=== PATIENT | female | born 1995 | race Caucasian/White ===

== ENCOUNTER → 2016-06-20 | Outpatient (CLI) | payer BC | LOC: BHSO 15:57 | DX: F90.0 Attention-deficit hyperactivity disorder, predominantly inattentive type (principal) ==

== ENCOUNTER → 2016-09-12 | Outpatient (CLI) | payer BC | LOC: BHSO 15:08 | DX: F90.0 Attention-deficit hyperactivity disorder, predominantly inattentive type (principal) ==

== ENCOUNTER → 2017-03-23 | Outpatient (CLI) | payer BC | LOC: BHSO 15:19 | DX: F90.0 Attention-deficit hyperactivity disorder, predominantly inattentive type (principal) ==